=== PATIENT | female | born 1990 | race Asian ===

== ENCOUNTER 2017-02-25 07:26 | Inpatient (IN) | payer OTHER ==
[2017-02-25] MEDS ORDERED: Oxytocin in LR* 20 UNITS/1,000 ML BAG IVPB SCH ×2 (10:00→19:00)
[2017-02-25 11:12] LABS: Hematocrit 36 % (35-47); Hemoglobin 11.9 g/dl (12.0-16.0); Mean Corpuscular HGB Conc 33 g/dl (31-36); Mean Corpuscular Hemoglobin 32 pg (27-31); Mean Corpuscular Volume 96 fL (80-97); Mean Platelet Volume 10 um3 (7.4-10.4); Red Blood Count 3.68 10^6/ul (4.0-5.4); Red Cell Distribution Width 14 % (10.5-15); White Blood Count 10.6 10^3/ul (3.5-10.8)
[2017-02-25] MEDS ORDERED: OBEPIDURAL* 250 ML ONE (12:08)
[2017-02-25] MEDS ORDERED: Sodium Citrate/Citric Acid* 15 ML UDC PO PRN (12:56)
[2017-02-25] MEDS ORDERED: Phenylephrine IV* 40 MCG/ML 10 ML SYRINGE IV PUSH PRN (12:56)
[2017-02-25] MEDS ORDERED: Famotidine TAB* 20 MG PO PRN (12:56)
[2017-02-25] MEDS ORDERED: OBEPIDURAL* 250 ML EPIDURAL SCH (13:00)
[2017-02-25] MEDS ORDERED: Misoprostol TAB* 200 MCG PR ONE (18:14)
[2017-02-25] MEDS ORDERED: Glycerin ADULT SUPP PR PRN (18:14)
[2017-02-25] MEDS ORDERED: Acetaminophen TAB* 325 MG PO PRN (18:14)
[2017-02-25] MEDS ORDERED: Witch Hazel PAD* JAR TOPICAL PRN (18:14)
[2017-02-25] MEDS ORDERED: Dibucaine 1% 28.35 GM TUBE PR PRN (18:14)
[2017-02-25] MEDS ORDERED: Ammonia Inhalant* 1 EA AMP ONE (20:44)
[2017-02-25] MEDS ORDERED: Simethicone CHEW TAB* 80 MG PO SCH (21:00)
[2017-02-25] MEDS: Ibuprofen TAB* 600 MG PO PRN (21:51)
[2017-02-25] MEDS: Docusate CAP* 100 MG PO SCH (21:52)
[2017-02-26] MEDS: Ibuprofen TAB* 600 MG PO PRN ×3 (03:35→18:15)
[2017-02-26 06:46] LABS: Hematocrit 32 % (35-47); Hemoglobin 10.8 g/dl (12.0-16.0); Mean Corpuscular HGB Conc 34 g/dl (31-36); Mean Corpuscular Hemoglobin 32 pg (27-31); Mean Corpuscular Volume 95 fL (80-97); Mean Platelet Volume 10 um3 (7.4-10.4); Red Blood Count 3.35 10^6/ul (4.0-5.4); Red Cell Distribution Width 13 % (10.5-15); White Blood Count 16.6 10^3/ul (3.5-10.8)
[2017-02-26] MEDS: Docusate CAP* 100 MG PO SCH (08:12)
[2017-02-26] MEDS ORDERED: Ferrous Gluconate TAB* 324 MG TAB PO SCH (09:00)
[2017-02-27] MEDS: Ibuprofen TAB* 600 MG PO PRN ×2 (00:59→07:18)
[2017-02-27 07:41] VITALS: BP 99/65
== END 2017-02-27 10:08 | disposition home or self-care (01) | DRG 560 ==
LOC: MCHOBOUT 07:26 → MCHOB 09:37
PROVIDERS: ADMIT Obstetrics & Gynecology; ATTEND Obstetrics & Gynecology
PROC: 10E0XZZ Delivery of Products of Conception, External Approach (ICD-10-PCS; principal; 2017-02-25)
PROC: 3E033VJ Introduction of Other Hormone into Peripheral Vein, Percutaneous Approach (ICD-10-PCS; 2017-02-25)
PROC: 10907ZC Drainage of Amniotic Fluid, Therapeutic from Products of Conception, Via Natural or Artificial Opening (ICD-10-PCS; 2017-02-25)
PROC: 0KQM0ZZ Repair Perineum Muscle, Open Approach (ICD-10-PCS; 2017-02-25)
DX: O48.0 Post-term pregnancy (principal); O69.89X0 Labor and delivery complicated by other cord complications, not applicable or unspecified; O70.1 Second degree perineal laceration during delivery; Z3A.40 40 weeks gestation of pregnancy; Z37.0 Single live birth
CPT/HCPCS: 36415; 85025; 86850; 86900; 86901; 99211; A9270-GY; G0463